=== PATIENT | male | born 1985 | race Caucasian/White ===

== ENCOUNTER → 2019-06-16 | Outpatient (CLI) | payer OTHER ==
--- NOTE | 2019-06-16 17:30 | MRI ---
EXAM DESCRIPTION: Lumbar Spine w/o Contrast : Magnetic Resonance Imaging. CLINICAL HISTORY: LOW BACK PAIN COMPARISON: None. TECHNIQUE: Multiplanar, multiple standard sequences, non contrast MRI, lumbar spine. FINDINGS: L5-S1: The disc space is imaged on T2 weighted axial series #501, image 3. Disc space is decreased with desiccation of the disc. 7.5 cm left paracentral herniation of the disc with minimal superior more than inferior extrusion, and mass effect on the descending left S1 nerve in the upper subarticular recess. AP canal diameter to the left of midline is 9 mm. Mild bilateral foraminal narrowing. Posterior elements unremarkable. L4-L5: Disc space maintained with normal signal in the disc. No posterior bulging. Posterior elements unremarkable. Canal and foramina are patent. L3-L4: Normal findings. L2-L3: Normal findings. L1-L2: Minimal desiccation of the disc and minimal disc space loss. No bulging. Posterior elements unremarkable. Canal and foramina are patent. T12-L1: Normal findings. Conus terminates just below the disc space. No scoliosis. Paravertebral soft tissues negative.. Cord normal signal and caliber. Normal marrow signal in the remaining vertebral bodies and the posterior elements. Vertebral bodies are not compressed at any level. IMPRESSION: 1. 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 Mild left paracentral canal stenosis. No significant narrowing of the foramina. 2. Minimal desiccation of the L1-L2 disc and minimal disc space loss. No canal or foraminal stenosis. Electronically signed by: Rupert Mckee MD 06/16/2019 5:29 PM CDT
== END ==
LOC: MRI 08:56
PROVIDERS: ATTEND General Practice
DX: M51.87 Other intervertebral disc disorders, lumbosacral region (principal); M51.36 Other intervertebral disc degeneration, lumbar region